=== PATIENT | male | born 1985 | race Caucasian/White ===

== ENCOUNTER 2017-06-27 12:21 | Emergency (ER) | payer SELFPAY ==
[~2017-06-27] VITALS: Ht 172.7 cm; Wt 63.5 kg
[2017-06-27 12:24] VITALS: BP 111/69; PULSE 76; RESP 18; TEMP 98; O2SAT 98
--- NOTE | 2017-06-27 12:37 | PD ---
HPI Chief Complaint: Oral / Dental Pain or Problem Time Seen by Provider: 12:36 Travel History International Travel<30 days: No Contact w/Intl Traveler<30days: No Traveled to known affect area: No History of Present Illness HPI 31-year-old male presents emergency department with pain and swelling to the left upper jaw. Pain is localized to the #13 tooth. He states the swelling is worse in the last 2 days. He has been taking Tylenol without much relief. He denies fever, chills, or difficulty swallowing. There is no drainage. Pain is 9 out of 10. He has no known drug allergies [facility] Social History Alcohol Use: Yes Tobacco Use: Yes Substance Use: Yes Allergies-Medications (Allergen,Severity, Reaction): Coded Allergies: No Known Allergies (Unverified , 06/27/17) Reported Meds & Prescriptions Reported Meds & Active Scripts Active No Active Prescriptions or Reported Medications Review of Systems Except as stated in HPI: all other systems reviewed are Neg General / Constitutional: No: Fever Eyes: No: Visual changes HENT: Positive: Dental Difficulties, No: Headaches, Vertigo, Lightheadedness, Sore Throat, Rhinitis, Rhinorrhea, Congestion, Nosebleed, Neck Stiffness, Neck Pain, Ear Discharge, Earache Cardiovascular: No: Chest Pain or Discomfort Respiratory: No: Shortness of Breath Gastrointestinal: No: Abdominal Pain Genitourinary: No: Dysuria Musculoskeletal: No: Pain Skin: No Rash Neurologic: No: Weakness Psychiatric: No: Depression Endocrine: No: Polydipsia Hematologic/Lymphatic: No: Easy Bruising Physical Exam Narrative GENERAL: Patient appears in mild to moderate distress per SKIN: Warm and dry. Normal color. Normal turgor. No rash. No erythema HEAD: Atraumatic. Normocephalic. Patient is obvious swelling over the left upper jaw along the maxillary cheek. EYES: Pupils equal and round. No scleral icterus. No injection or drainage. ENT: No nasal bleeding or discharge. Mucous membranes pink and moist. Patient has poor dental health with caries appreciated. Patient is swollen left upper gingival area without pointing. NECK: Trachea midline. Supple and nontender. CARDIOVASCULAR: Regular rate and rhythm. RESPIRATORY: No accessory muscle use. Clear to auscultation. Breath sounds equal bilaterally. MUSCULOSKELETAL: Extremities without clubbing, cyanosis, or edema. No obvious deformities. NEUROLOGICAL: Awake and alert. No obvious cranial nerve deficits. Motor grossly within normal limits. Five out of 5 muscle strength in the arms and legs. Normal speech. PSYCHIATRIC: Appropriate mood and affect; insight and judgment normal. Data Data Last Documented VS Vital Signs Date Time Temp Pulse Resp B/P (MAP) Pulse Ox O2 Delivery O2 Flow Rate FiO2 06/27/17 12:24 98.0 76 18 111/69 (83) 98 Orders Orders Ketorolac Inj (Toradol Inj) (06/27/17 12:45) Clindamycin Inj (Cleocin Inj) (06/27/17 12:45) MDM Medical Decision Making Medical Screen Exam Complete: Yes Emergency Medical Condition: Yes Differential Diagnosis Dental caries. Dental pain. Dental abscess. Narrative Course Patient is medically stable. Patient is given Toradol 60 mg IM. Patient is given clindamycin 600 mg IM. Patient continued on Pen-Vee K 500 mg 4 times daily for 10 days. Patient is given ibuprofen 800 mg 1 tab every 8 hours as needed pain #60. Patient is to follow-up with the dental resources soon as possible. Patient can return to the ED if symptoms worsen. Diagnosis Primary Impression: Dental abscess Referrals: Dentist Patient Instructions: Dental Abscess (ED), General Instructions Additional Instructions: Patient is given Toradol 60 mg IM. Patient is given clindamycin 600 mg IM. Patient continued on Pen-Vee K 500 mg 4 times daily for 10 days. Patient is given ibuprofen 800 mg 1 tab every 8 hours as needed pain #60. Patient is to follow-up with the dental resources soon as possible. Patient can return to the ED if symptoms worsen. Med/Other Pt SpecificInfo: Prescription(s) given Scripts Ibuprofen (Ibuprofen) 800 Mg Tab 800 MG PO Q8H Y for Pain/Inflammation, #60 TAB 0 Refills Prov: Phuong Gilbert MD 06/27/17 Penicillin V Potassium (Penicillin V Potassium) 500 Mg Tab 500 MG PO Q6H for Infection for 10 Days, #40 TAB 0 Refills Prov: Phuong Gilbert MD 06/27/17 Disposition: 01 DISCHARGE HOME Condition: Stable [place] June 27, 2017 12:37
[2017-06-27] MEDS ORDERED: CLINDAMYCIN PHOS 600 MG/4 ML VIAL IM ONE (12:45)
[2017-06-27] MEDS ORDERED: KETOROLAC TROMETHAMINE 60 MG/2 ML (IM) VIAL IM ONE (12:45)
[2017-06-27] MEDS ORDERED: PENI500T PO (12:48)
[2017-06-27] MEDS ORDERED: IBUP1TAB7 PO (12:48)
== END 2017-06-27 13:40 | disposition home or self-care (01) ==
LOC: NEPD 12:21
DX: K04.7 Periapical abscess without sinus (principal); Z72.0 Tobacco use
CPT/HCPCS: 96372; 99283; J1885

== ENCOUNTER 2017-07-03 09:12 | Emergency (ER) | payer SELFPAY ==
[~2017-07-03] VITALS: Ht 165.1 cm; Wt 60.0 kg
[~2017-07-03 09:12] MED LIST: IBUP1TAB7 PO; PENI500T PO
[2017-07-03 09:20] VITALS: BP 111/72; PULSE 67; RESP 14; TEMP 97.7; O2SAT 95
[2017-07-03] MEDS ORDERED: SODIUM CHLOR 0.9% 1000 ML INJ 1,000 ML IV ONE (09:33)
--- NOTE | 2017-07-03 09:43 | PD ---
HPI Chief Complaint: Syncope/Near-Syncope Time Seen by Provider: 09:33 Travel History International Travel<30 days: No Contact w/Intl Traveler<30days: No Traveled to known affect area: No History of Present Illness HPI 31-year-old male patient with history of no significant past medical issues, presents to the ER today because he states that he had a syncopal episode, but did not completely lose consciousness. He states he was bending over his sink when he got dizzy and fell into the sink, apparently EMS stated that he had seizure-like activity. However, he was unaware of what happened the whole time , did not completely lose consciousness, had no incontinence, had no tongue biting. He denies any chest pains, trouble breathing, or other symptoms. He states that he has been stressed out recently and has not been eating very well , because there was no food at home. He denies any recent fevers. Modifying Factors: None Associated Signs & Symptoms: Near syncopal episode Risk Factors: None PFSH Past Medical History Medical History: Denies Significant Hx Social History Alcohol Use: No Tobacco Use: Yes Substance Use: Yes (HX) Allergies-Medications (Allergen,Severity, Reaction): Coded Allergies: No Known Allergies (Unverified , 06/27/17) Reported Meds & Prescriptions Reported Meds & Active Scripts Active Ibuprofen 800 Mg Tab 800 Mg PO Q8H PRN Penicillin V Potassium 500 Mg Tab 500 Mg PO Q6H 10 Days Review of Systems Except as stated in HPI: all other systems reviewed are Neg Physical Exam Narrative GENERAL: Well-developed young white male patient currently in mild distress. Awake and oriented 3. SKIN: Focused skin assessment warm/dry. HEAD: Atraumatic. Normocephalic. EYES: Pupils equal and round. No scleral icterus. No injection or drainage. ENT: No nasal bleeding or discharge. Mucous membranes pink and moist. NECK: Trachea midline. No JVD. CARDIOVASCULAR: Regular rate and rhythm. No murmur appreciated. RESPIRATORY: No accessory muscle use. Clear to auscultation. Breath sounds equal bilaterally. GASTROINTESTINAL: Abdomen soft, non-tender, nondistended. Hepatic and splenic margins not palpable. MUSCULOSKELETAL: No obvious deformities. No clubbing. No cyanosis. No edema. NEUROLOGICAL: Awake and alert. No obvious cranial nerve deficits. Motor grossly within normal limits. Normal speech. PSYCHIATRIC: Appropriate mood and affect; insight and judgment normal. Data Data Last Documented VS Vital Signs Date Time Temp Pulse Resp B/P (MAP) Pulse Ox O2 Delivery O2 Flow Rate FiO2 07/03/17 13:11 55 97/55 (69) 60 90/55 (67) 77 98/66 (77) 07/03/17 11:00 14 98 Room Air 07/03/17 09:20 97.7 Orders Orders Complete Blood Count With Diff (07/03/17 09:33) Comprehensive Metabolic Panel (07/03/17 09:33) Troponin I (07/03/17 09:33) Urinalysis - C+S If Indicated (07/03/17 09:33) Chest, Single Ap (07/03/17 09:33) Ct Brain W/O Iv Contrast(Rout) (07/03/17 09:33) Ecg Monitoring (07/03/17 09:33) Iv Access Insert/Monitor (07/03/17 09:33) Oximetry (07/03/17 09:33) Sodium Chloride 0.9% Flush (Ns Flush) (07/03/17 09:45) Sodium Chlor 0.9% 1000 Ml Inj (Ns 1000 M (07/03/17 09:33) Drug Screen, Random Urine (07/03/17 09:33) Ondansetron Odt (Zofran Odt) (07/03/17 09:45) Orthostatic Vital Signs (07/03/17 12:45) Diet Regular Basic (07/03/17 Lunch) Ed Discharge Order (07/03/17 14:46) Labs Laboratory Tests Test 07/03/17 09:34 07/03/17 11:12 White Blood Count 8.9 TH/MM3 Red Blood Count 5.46 MIL/MM3 Hemoglobin 16.3 GM/DL Hematocrit 47.0 % Mean Corpuscular Volume 86.1 FL Mean Corpuscular Hemoglobin 29.9 PG Mean Corpuscular Hemoglobin Concent 34.7 % Red Cell Distribution Width 15.8 % Platelet Count 393 TH/MM3 Mean Platelet Volume 7.7 FL Neutrophils (%) (Auto) 57.3 % Lymphocytes (%) (Auto) 33.2 % Monocytes (%) (Auto) 5.5 % Eosinophils (%) (Auto) 3.3 % Basophils (%) (Auto) 0.7 % Neutrophils # (Auto) 5.1 TH/MM3 Lymphocytes # (Auto) 2.9 TH/MM3 Monocytes # (Auto) 0.5 TH/MM3 Eosinophils # (Auto) 0.3 TH/MM3 Basophils # (Auto) 0.1 TH/MM3 CBC Comment DIFF FINAL Differential Comment Blood Urea Nitrogen 24 MG/DL Creatinine 1.14 MG/DL Random Glucose 93 MG/DL Total Protein 9.2 GM/DL Albumin 3.7 GM/DL Calcium Level 9.4 MG/DL Alkaline Phosphatase 95 U/L Aspartate Amino Transf (AST/SGOT) 27 U/L Alanine Aminotransferase (ALT/SGPT) 25 U/L Total Bilirubin 0.5 MG/DL Sodium Level 135 MEQ/L Potassium Level 4.6 MEQ/L Chloride Level 100 MEQ/L Carbon Dioxide Level 25.7 MEQ/L Anion Gap 9 MEQ/L Estimat Glomerular Filtration Rate 75 ML/MIN Troponin I LESS THAN 0.02 NG/ML Urine Color YELLOW Urine Turbidity HAZY Urine pH 5.0 Urine Specific [place] 1.027 Urine Protein 30 mg/dL Urine Glucose (UA) NEG mg/dL Urine Ketones NEG mg/dL Urine Occult Blood NEG Urine Nitrite NEG Urine Bilirubin NEGATIVE Urine Urobilinogen 2.0 MG/DL Urine Leukocyte Esterase NEGATIVE Urine RBC LESS THAN 1 /hpf Urine WBC 7 /hpf Urine Squamous Epithelial Cells <1 /hpf Urine Hyaline Casts 3 /lpf Urine Mucus MOD /lpf Microscopic Urinalysis Comment CULT NOT INDICATED Urine Opiates Screen NEG Urine Barbiturates Screen NEG Urine Amphetamines Screen NEG Urine Benzodiazepines Screen NEG Urine Cocaine Screen NEG Urine Cannabinoids Screen NEG MDM Medical Decision Making Medical Screen Exam Complete: Yes Emergency Medical Condition: Yes Medical Record Reviewed: Yes Interpretation(s) EKG shows normal sinus rhythm at a rate of 74 bpm with no signs of acute ST elevations or depressions. Laboratory Tests Test 07/03/17 09:34 07/03/17 11:12 Blood Urea Nitrogen 24 MG/DL (7-18) Total Protein 9.2 GM/DL (6.4-8.2) Sodium Level 135 MEQ/L (136-145) Estimat Glomerular Filtration Rate 75 ML/MIN (>89) Troponin I LESS THAN 0.02 NG/ML Urine Turbidity HAZY (CLEAR) Urine Protein 30 mg/dL (NEG-TRACE) Urine WBC 7 /hpf (0-5) Urine Mucus MOD /lpf (OCC) Last [address] 5/19/18 0933 Signed Impressions: Service Date/Time: Monday, July 03, 2017 11:45 - CONCLUSION: 1. No acute intracranial abnormality. Marco Gates MD Chest X-Ray 07/03/17932 Signed Impressions: Service Date/Time: Monday, July 03, 2017 09:39 - CONCLUSION: Lungs are clear. Joesph Gaviria MD Differential Diagnosis Near syncope: Dysrhythmias versus dehydration versus vasovagal versus electrolyte abnormalities versus acute intercranial processes Narrative Course EKG did not show any signs of acute dysrhythmias or ST changes. Vital signs are stable in the ER. Lab work did not show significant metabolic issues. Cardiac enzymes are negative. And on further questioning, it appears he has not eaten in several days, and states that he does not have food at home, was fed in the ER and was sitting up on reevaluation at 3 PM, and is feeling better , wants to go home. At this point, my plan would be to release him home and have him follow-up with primary care doctor. He needs to eat and drink on a consistent basis. Return for any worsening symptoms as needed. territory development manager has been asked to talk to the patient regarding community resources. The plan was discussed with the patient and he states understanding. Diagnosis Primary Impression: Syncope Disposition: 01 DISCHARGE HOME Condition: Stable Baylee Marquez MD July 03, 2017 09:43
[2017-07-03] MEDS ORDERED: SODIUM CHLORIDE 0.9% FLUSH 10 ML FLUSH IVF PRN (09:45)
[2017-07-03] MEDS ORDERED: ONDANSETRON ODT 4 MG TAB PO ONE (09:45)
--- NOTE | 2017-07-03 09:53 | RADRPT ---
EXAM DATE/TIME: 07/03/2017 09:39 [facility] COMPARISON: No previous studies available for comparison. INDICATIONS : Syncope. Post seizure. MEDICAL HISTORY : Hypertension. SURGICAL HISTORY : None. ENCOUNTER: Initial ACUITY: 1 day PAIN SCORE: 0/10 LOCATION: Bilateral chest FINDINGS: A single view of the chest demonstrates the lungs to be symmetrically aerated without evidence of mas s, infiltrate or effusion. No evidence of pneumothorax. The cardiomediastinal contours are unremark able. Osseous structures are intact. CONCLUSION: Lungs are clear. Joesph Gaviria MD on July 03, 2017 at 9:48 Board Certified Radiologist. This report was verified electronically.
[2017-07-03 10:07] LABS: AUTOMATED NEUTROPHIL # 5.1 TH/MM3 (1.8-7.7); BASOPHIL # 0.1 TH/MM3 (0-0.2); BASOPHIL % 0.7 % (0.0-2.0); EOSINOPHIL # 0.3 TH/MM3 (0-0.4); EOSINOPHIL % 3.3 % (0.0-4.0); HEMOGLOBIN 16.3 GM/DL (13.0-17.0); LYMPH % 33.2 % (9.0-44.0); LYMPHOCYTE # 2.9 TH/MM3 (1.0-4.8); MEAN CELL VOLUME 86.1 FL (80.0-100.0); MEAN CORPUSCULAR HEMOGLOBIN 29.9 PG (27.0-34.0); MEAN CORPUSCULAR HGB CONC 34.7 % (32.0-36.0); MEAN PLATELET VOLUME 7.7 FL (7.0-11.0); MONO % 5.5 % (0.0-8.0); MONOCYTE # 0.5 TH/MM3 (0-0.9); NEUT % 57.3 % (16.0-70.0); PLATELET COUNT 393 TH/MM3 (150-450); RED BLOOD COUNT 5.46 MIL/MM3 (4.50-5.90); RED CELL DISTRIBUTION WIDTH 15.8 % (11.6-17.2); WHITE BLOOD COUNT 8.9 TH/MM3 (4.0-11.0)
[2017-07-03 10:15] LABS: ALT (GPT) 25 U/L (12-78)
[2017-07-03 10:19] LABS: ALKALINE PHOSPHATASE 95 U/L (45-117); TOTAL BILIRUBIN ADULT 0.5 MG/DL (0.2-1.0); TOTAL PROTEIN 9.2 GM/DL (6.4-8.2); TROPONIN I LESS THAN 0.02 NG/ML (0.02-0.05)
[2017-07-03 10:21] LABS: ALBUMIN 3.7 GM/DL (3.4-5.0); AST (GOT) 27 U/L (15-37); BICARBONATE 25.7 MEQ/L (21.0-32.0); BLOOD UREA NITROGEN 24 MG/DL (7-18); CALCIUM 9.4 MG/DL (8.5-10.1); CHLORIDE 100 MEQ/L (98-107); CREATININE 1.14 MG/DL (0.60-1.30); GLOMERULAR FILTRATION RATE 75 ML/MIN (>89); GLUCOSE,RANDOM 93 MG/DL (74-106); SODIUM (NA) 135 MEQ/L (136-145)
[2017-07-03 11:00] VITALS: RESP 14; O2SAT 98
--- NOTE | 2017-07-03 12:04 | RADRPT ---
EXAM DATE/TIME: 07/03/2017 11:45 [facility] COMPARISON: No previous studies available for comparison. INDICATIONS : Syncopal episode. RADIATION DOSE: 56.77 CTDIvol (mGy) MEDICAL HISTORY : None SURGICAL HISTORY : None. ENCOUNTER: Initial ACUITY: 1 day PAIN SCALE: 0/10 LOCATION: cranial TECHNIQUE: Multiple contiguous axial images were obtained of the head. Using automated exposure control and adj ustment of the mA and/or kV according to patient size, radiation dose was kept as low as reasonably a chievable to obtain optimal diagnostic quality images. DICOM format image data is available electro nically for review and comparison. FINDINGS: CEREBRUM: The ventricles are normal for age. No evidence of midline shift, mass lesion, hemorrhage or acute in farction. No extra-axial fluid collections are seen. POSTERIOR FOSSA: The cerebellum and brainstem are intact. The 4th ventricle is midline. The cerebellopontine angle i s unremarkable. EXTRACRANIAL: The visualized portion of the orbits is intact. SKULL: The calvaria is intact. No evidence of skull fracture. CONCLUSION: 1. No acute intracranial abnormality. Marco Gates MD on July 03, 2017 at 12:01 Board Certified Radiologist. This report was verified electronically.
[2017-07-03 12:10] LABS: URINE COLOR YELLOW (YELLW/STRAW)
[2017-07-03 12:11] LABS: BILIRUBIN, URINE NEGATIVE (NEG); BLOOD, URINE NEG (NEG); GLUCOSE,URINE NEG (NEG); KETONE, URINE NEG (NEG); NITRITE,URINE NEG (NEG); URINE LEUKOCYTE ESTERASE NEGATIVE (NEG)
[2017-07-03 12:12] LABS: HYALINE CAST, URINE 3 /lpf (RARE); MUCUS URINE MOD /lpf (OCC); SQUAMOUS EPITHELIAL CELL URINE <1 /hpf (0-5)
[2017-07-03 13:11] VITALS: BP_SYST 90; BP_SYST 97; BP_SYST 98; BP_DIAS 55; BP_DIAS 66
--- NOTE | 2017-07-04 21:40 | EKG ---
Date Performed: 07/03/2017 Time Performed: 09:24:12 PTAGE: 31 years EKG: Sinus rhythm NORMAL ECG NO PREVIOUS TRACING DOCTOR: Denny Veloz Interpretating Date/Time 07/04/2017 21:39:05
== END 2017-07-03 15:39 | disposition home or self-care (01) ==
LOC: NEPE 09:12
DX: R55 Syncope and collapse (principal); Z72.0 Tobacco use
CPT/HCPCS: 70450; 71045; 80053; 80307; 81001; 84484; 85025; 93005; 96360; 99285; J7030